=== PATIENT | male | born 1995 ===

== ENCOUNTER 2019-01-06 13:23 | Emergency (ER) | payer OTHER ==
[2019-01-06] MEDS ORDERED: Lidocaine 5% Patch TD STA (14:15)
--- NOTE | 2019-01-06 14:22 | ED PDOC ---
HPI: Back Time Seen by Provider: 01/06/19 14:07 Chief Complaint (Nursing): Back Pain Chief Complaint (Provider): Back Pain History Per: Patient History/Exam Limitations: no limitations Onset/Duration Of Symptoms: Days (x 3) Current Symptoms Are (Timing): Still Present Quality Of Discomfort: "Pain" Previous Symptoms: None Associated Symptoms: None Additional Complaint(s): 23 year old male with no significant medical history presents to the ED with left sided lower back pain radiating towards his abdomen, onset 2 days ago. Patient reports he was moving furniture around a room when the pain began suddenly and has persisted without relief since. He denies dysuria, hematuria, abdominal pain, testicular pain, numbness, weakness and fecal or urinary incontinence. PMD: Dr. Mehrdad Almeida Past Medical History Reviewed: Historical Data, Nursing Documentation, Vital Signs Vital Signs: Last Vital Signs Temp 98.2 F 01/06/19 13:51 Pulse 135 H 01/06/19 13:51 Resp 16 01/06/19 13:51 BP 144/79 01/06/19 13:51 Pulse Ox 100 01/06/19 13:51 - Medical History PMH: No Chronic Diseases - Surgical History Surgical History: No Surg Hx - Family History Family History: States: Unknown Family Hx - Home Medications Home Medications: Ambulatory Orders Medication Instructions Recorded Diazepam [Valium] 2 mg PO BID PRN #6 tab 01/06/19 Ibuprofen [Motrin] 600 mg PO TID 7 Days tab 01/06/19 Lidocaine 5% [Lidoderm] 1 ea TD DAILY PRN #5 patch 01/06/19 - Allergies Allergies/Adverse Reactions: Allergies Allergy/AdvReac Type Severity Reaction Status Date / Time No Known Allergies Allergy Verified 01/06/19 13:50 Review of Systems ROS Statement: Except As Marked, All Systems Reviewed And Found Negative Constitutional: Negative for: Fever Gastrointestinal: Negative for: Abdominal Pain Genitourinary Male: Negative for: Dysuria, Frequency, Incontinence, Hematuria, Scrotal Pain Musculoskeletal: Positive for: Back Pain (left sided lower back radiating towards abdomen) Neurological: Negative for: Weakness, Numbness Physical Exam - Reviewed Nursing Documentation Reviewed: Yes Vital Signs Reviewed: Yes - Physical Exam Appears: Positive for: Non-toxic, No Acute Distress Head Exam: Positive for: ATRAUMATIC, NORMAL INSPECTION, NORMOCEPHALIC Skin: Positive for: Normal Color, Warm, Dry Eye Exam: Positive for: EOMI, Normal appearance, PERRL Neck: Positive for: Normal, Painless ROM, Supple Cardiovascular/Chest: Positive for: Regular Rate, Rhythm. Negative for: Murmur Respiratory: Positive for: Normal Breath Sounds. Negative for: Wheezing, Respiratory Distress Gastrointestinal/Abdominal: Positive for: Normal Exam, Soft. Negative for: Tenderness, Mass, Guarding, Rebound Back: Positive for: Other (left lower back tenderness). Negative for: Normal Inspection, Vertebral Tenderness Extremity: Positive for: Other ((+) straight leg test bilaterally; left leg at 45 degrees, right leg at 60 degrees). Negative for: Tenderness (bilateral legs), Calf Tenderness, Deformity Neurologic/Psych: Positive for: Alert, Oriented (x 3). Negative for: Motor/Sensory Deficits, Aphasia - ECG O2 Sat by Pulse Oximetry: 100 (RA) Pulse Ox Interpretation: Normal - Progress ED Course And Treament: 1442: Stable. Pain controlled. AAOx3. Pulled muscle likely. Urine with no findings. Ambulated with no issues. Medical Decision Making Medical Decision Makin:15 Impression: lower back pain Initial Plan: --urine dip --Lidoderm 1 ea td --Toradol 15 mg IM --Valium 5 mg PO Scribe Attestation: Documented by Yanelis Crowder acting as a scribe for Yadiel Grayson MD Provider Scribe Attestation: All medical record entries made by the Scribe were at my direction and personally dictated by me. I have reviewed the chart and agree that the record accurately reflects my personal performance of the history, physical exam, medical decision making, and the department course for this patient. I have also personally directed, reviewed, and agree with the discharge instructions and disposition. Disposition - Clinical Impression Clinical Impression: Low back pain - Patient ED Disposition Is Patient to be Admitted: No Counseled Patient/Family Regarding: Studies Performed, Diagnosis, Need For F ollowup, Rx Given - Disposition Referrals: [facility] [Outside] - 01/07/19 Disposition: Routine/Home Disposition Time: 14:00 Condition: STABLE Additional Instructions: Return if not better in 3 days. Prescriptions: Diazepam [Valium] 2 mg PO BID PRN #6 tab PRN Reason: Muscle Spasm Ibuprofen [Motrin] 600 mg PO TID 7 Days tab Lidocaine 5% [Lidoderm] 1 ea TD DAILY PRN #5 patch PRN Reason: Pain, Moderate (4-7) Instructions: Low Back Pain in Adults Forms: [facility] ED School/Work Excuse
[2019-01-06] MEDS ORDERED: Lidocaine 5% Patch TD ONE (14:24)
[2019-01-06 15:34] VITALS: BP 137/69; PULSE 97; RESP 18; TEMP 98.6; O2SAT 99
== END 2019-01-06 14:48 | disposition home or self-care (01) ==
LOC: H.ER 13:23
DX: M54.5 Low back pain (principal)
CPT/HCPCS: 96372; 99283; J1885